=== PATIENT | female | born 1995 | race Caucasian/White ===

== ENCOUNTER 2018-04-29 15:48 | Emergency (ER) | payer OTHER ==
--- NOTE | 2018-04-29 16:14 | ER Document Report ---
ED Medical Screen (RME) - General Chief Complaint: Vag Bleeding, +preg <12wks Stated Complaint: VAGINAL BLEEDING/CRAMPS Time Seen by Provider: 04/29/18 15:54 TRAVEL OUTSIDE OF THE [place] IN LAST 30 DAYS: No - HPI Patient complains to provider of: Vaginal spotting Onset: Other - 22-year-old female without significant past medical history who presents for evaluation of vaginal spotting which started today with some intermittent cramps thereafter. She notes that during that time she looked up some information which she said that if you are and having persisting cramps after some spotting should be evaluated. She denies any emesis chest pain shortness of breath or other symptoms at this time, she has not seen in OB doctor yet in relation to her care, this is her first she is uncertain about the exact previous states that she had an abnormal menses approximately 1 month prior. - Related Data Allergies/Adverse Reactions: No Known Allergies Allergy (Verified 04/29/18 15:50) Past Medical History Renal/ Medical History: Denies: Hx Peritoneal Dialysis Physical Exam - Vital signs Vitals: Temp Pulse Resp BP Pulse Ox 97.9 F 72 16 109/63 100 04/29/18 15:56 04/29/18 15:56 04/29/18 15:56 04/29/18 15:56 04/29/18 15:56 Course - Re-evaluation Re-evalutation: 04/29/18 16:13 This is a healthy 22-year-old female who is , her is currently of an unknown location. She is having some cramping with associated spotting. We will plan for this patient undergo transvaginal ultrasound, Rh factor testing that she believes she is O+, urinalysis reassessment and disposition determination related to the results thereof. - Vital Signs Vital signs: Temp Pulse Resp BP Pulse Ox 97.9 F 72 16 109/63 100 04/29/18 15:56 04/29/18 15:56 04/29/18 15:56 04/29/18 15:56 04/29/18 15:56
[2018-04-29 17:05] LABS: APPEARANCE,URINE CLEAR; BILIRUBIN,URINE NEGATIVE (NEGATIVE); COLOR,URINE STRAW; GLUCOSE, URINE NEGATIVE (NEGATIVE); KETONES,URINE NEGATIVE (NEGATIVE); LEUKOCYTE ESTERASE,URINE NEGATIVE (NEGATIVE); NITRITE,URINE NEGATIVE (NEGATIVE); PROTEIN,URINE NEGATIVE (NEGATIVE); URINE SPECIFIC GRAVITY 1.004; UROBILINOGEN,URINE NEGATIVE mg/dL (<2.0)
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
--- NOTE | 2018-04-29 17:55 | RADIOLOGY REPORT (SQ) ---
EXAM DESCRIPTION: U/S OB TRANSVAGINAL W/O DOP COMPLETED DATE/TIME: 04/29/2018 5:43 pm REASON FOR STUDY: of unknown location COMPARISON: None. TECHNIQUE: Transvaginal static and realtime grayscale images acquired of the pelvis. Additional marta cted spectral and color Doppler images recorded. All images stored on PACs. bHCG: Not available LIMITATIONS: None. FINDINGS: UTERUS: No masses. No anomalies. GESTATIONAL SAC: Tiny gestational sac is identified. YOLK SAC: Not visualized POLE: Not visualized RIGHT ADNEXA: Right ovary not visualized. No adnexal free fluid. No adnexal masses. LEFT ADNEXA: Left ovary not visualized. No adnexal free fluid. No adnexal masses. FREE FLUID: None. OTHER: No other significant finding. IMPRESSION: Tiny gestational sac is identified. CONSIDER F/U BHCG AND/OR ULTRASOUND FOR VERIFICATION of a living IUP AND TO EXCLUDE ECTOPIC . Trimester of : First - 0 to 13 weeks. TECHNICAL DOCUMENTATION: JOB ID: [id number] [email or web address]- All Rights Reserved Reading location - IP/workstation name: [email or web address]
[2018-04-29 18:04] LABS: ABSOLUTE BASOPHILS # (AUTO) 0.1 10^3/uL (0.0-0.2); ABSOLUTE EOSINOPHILS # (AUTO) 0.2 10^3/uL (0.0-0.6); ABSOLUTE LYMPHOCYTES (AUTO) 2.3 10^3/uL (0.5-4.7); ABSOLUTE MONOCYTES (AUTO) 0.8 10^3/uL (0.1-1.4); ABSOLUTE NEUT (AUTO) 4.9 10^3/uL (1.7-8.2); BASOPHILS % (AUTO) 0.8 % (0-2); HEMATOCRIT 33.8 % (36.0-47.0); MEAN CORPUSCULAR HEMOGLOBIN 33.2 pg (27.0-33.4); MEAN CORPUSCULAR HGB CONC 35.5 g/dL (32.0-36.0); MEAN CORPUSCULAR VOLUME 93 fl (80-97); MONOCYTES % (AUTO) 9.3 % (3-13); PLATELET COUNT 258 10^3/uL (150-450); RED BLOOD COUNT 3.62 10^6/uL (3.72-5.28); RED CELL DISTRIBUTION WIDTH 13.7 % (11.5-14.0); SEGMENTED NEUTROPHILS % (AUTO) 59.9 % (42-78); TOTAL CELLS COUNTED % (AUTO) 100 %; WHITE BLOOD COUNT 8.2 10^3/uL (4.0-10.5)
[2018-04-29 18:37] LABS: ANION GAP 9 (5-19); BLOOD UREA NITROGEN 9 mg/dL (7-20); CARBON DIOXIDE 26 mmol/L (22-30); CHLORIDE 106 mmol/L (98-107); GLUCOSE 91 mg/dL (75-110); POTASSIUM 3.7 mmol/L (3.6-5.0); SODIUM 140.7 mmol/L (137-145)
[2018-04-29 19:54] VITALS: BP 116/68
== END 2018-04-29 19:54 | disposition home or self-care (01) ==
LOC: ER 15:48
DX: O20.9 Hemorrhage in early pregnancy, unspecified (principal)
CPT/HCPCS: 36415; 76817; 80048; 81001; 81025; 84702; 85025; 86900; 86901; 99284